=== PATIENT | female | born 1935 | race Caucasian/White ===

== ENCOUNTER → 2020-06-12 | Outpatient (CLI) | payer MEDICARE, OTHER ==
--- NOTE | 2020-06-12 15:00 | 2DMMODE ---
[place] [address] 2 D/M-MODE ECHOCARDIOGRAM Name: LV RESENDIZ Room: [facility]#: [id number] Admission: 06/12/20 Attend Phys: Monica Salazar Discharge: Date of : 31 Date of Service: 06/12/20 1500 Report #: [id number] THIS REPORT FOR: cc: Grayd Lezama MD, Bruce D. MD Holkins, John M. MD [facility] ~ APPROVED REPORT Study performed: 06/12/2020 11:10:48 EXAM: Comprehensive 2D, Doppler, and color-flow Echocardiogram Patient Location: Out-Patient BSA: 1.94 HR: 56 bpm BP: 142/82 mmHg Other Information Study Quality: Good Indications Retinal artery branch 2D Dimensions IVSd: 11.81 (7-11mm) LVOT Diam: 19.83 (18-24mm) LVDd: 45.62 mm PWd: 8.99 (7-11mm) Ascending Ao: 29.96 (22-36mm) LVDs: 24.23 (25-40mm) Aortic Root: 30.55 mm Volumes Left Atrial Volume (Systole) LA ESV Index: 23.10 mL/m2 Aortic Valve AoV Peak Huang.: 1.08 m/s AO Peak Gr.: 4.63 mmHg LVOT Max P.58 mmHg AO Mean Gr.: 2.61 mmHg LVOT Mean P.29 mmHg LVOT Max V: 1.07 m/s AO V2 VTI: 24.54 cm LVOT Mean V: 0.70 m/s SALLIE (VTI): 3.54 cm2 LVOT V1 VTI: 28.10 cm Mitral Valve E/A Ratio: 0.85 [place] [address] 2 D/M-MODE ECHOCARDIOGRAM Name: LV RESENDIZ Room: [facility]#: [id number] Admission: 06/12/20 Attend Phys: Monica Salazar Discharge: Date of : 31 Date of Service: 06/12/20 1500 Report #: [id number] MV Decel. Time: 238.27 ms MV E Max Huang.: 0.59 m/s MV PHT: 69.10 ms MVA (PHT): 3.18 cm2 TDI E/Lateral E': 7.38 E/Medial E': 4.54 Medial E' Huang.: 0.13 m/s Lateral E' Huang.: 0.08 m/s Pulmonary Valve PV Peak Huang.: 0.96 m/s PV Peak Gr.: 3.66 mmHg Left Ventricle The left ventricle is normal size. There is normal LV segmental wall motion. There is normal left ventricular wall thickness. Left ventricular systolic function is normal. The left ventricular ejection fraction is within the normal range. LVEF is 60-65%. The left ventricular diastolic function is normal. Right Ventricle The right ventricle is normal size. The right ventricular systolic function is normal. Atria The left atrium size is normal. The right atrium size is normal. Aortic Valve Mild aortic valve sclerosis. No aortic regurgitation is present. There is no aortic valvular stenosis. Mitral Valve The mitral valve is normal in structure. There is no mitral valve regurgitation noted. No evidence of mitral valve stenosis. Tricuspid Valve The tricuspid valve is normal in structure. There is no tricuspid valve regurgitation noted. Pulmonic Valve The pulmonary valve is normal in structure. Mild pulmonic regurgitation. Great Vessels The aortic root is normal in size. [place] [address] 2 D/M-MODE ECHOCARDIOGRAM Name: LV RESENDIZ Room: [facility]#: [id number] Admission: 06/12/20 Attend Phys: Monica Salazar Discharge: Date of : 31 Date of Service: 06/12/20 1500 Report #: [id number] collapses >50% with inspiration. Pericardium There is no pericardial effusion. <Conclusion> The left ventricle is normal size. There is normal left ventricular wall thickness. Left ventricular systolic function is normal. The left ventricular ejection fraction is within the normal range. LVEF is 60-65%. The left ventricular diastolic function is normal. The right ventricle is normal size. The left atrium size is normal. Mild aortic valve sclerosis. No aortic regurgitation is present. There is no aortic valvular stenosis. The mitral valve is normal in structure. The tricuspid valve is normal in structure. IVC is normal in size and collapses >50% with inspiration. There is no pericardial effusion. There is normal LV segmental wall motion. <ELECTRONICALLY SIGNED> By: Daniel Flynn MD, FACC 06/12/20 1500 1500 99 Daniel Flynn MD, FACC /INF
== END ==
LOC: M.ULTRA 06-10 16:33
PROVIDERS: ATTEND Family Medicine
DX: I08.8 Other rheumatic multiple valve diseases (principal); H34.232 Retinal artery branch occlusion, left eye; I65.23 Occlusion and stenosis of bilateral carotid arteries